=== PATIENT | male | born 1935 | race American Indian/Alaskan Native ===

== ENCOUNTER 2020-07-29 11:30 | Inpatient (IN) | payer MEDICARE ==
[2020-07-29] MEDS ORDERED: SODIUM CHLORIDE 0.9% 1000 ML 1,000 ML IV ONE (12:26)
--- NOTE | 2020-07-29 12:59 | Emergency Department Report ---
- General Chief complaint: Weakness Stated complaint: HYPOTENSION Time Seen by Provider: 07/29/20 12:10 Source: patient, EMS Mode of arrival: Stretcher Limitations: Physical Limitation - History of Present Illness Initial comments: 85-year-old male presents to ED with weakness and lethargy x3 weeks. Daughter (Jen Garcia [phone]) states patient has just been lying around the house, seems to be disoriented at times, not eating or drinking normally. Daughter states patient had an appointment with his PCP on last week who then schedule an appointment with cardiology today. Went to director treasurer's office for evaluation this morning and pt found to be hypotensive there. EMS reports BP 80/40. Patient has no complaints at this time. He does report that his p.o. intake has been somewhat decreased lately. States he lives with his daughter and her . He denies any fever, cough, vomiting, diarrhea, abdominal pain, chest pain, shortness of breath. Patient is alert and oriented. He is confused about the year, however is able to report that the month is July and that the president is Ryan Jonhston MD Complaint: generalized weakness -: week(s) (3) Location: generalized Consistency: constant Improves with: none Worsens with: none Associated Symptoms: loss of appetite. denies: chest pain, fever/chills, headaches, nausea/vomiting, myalgias, shortness of breath - Related Data Allergies Allergy/AdvReac Type Severity Reaction Status Date / Time No Known Allergies Allergy Unverified 07/29/20 14:27 ED Review of Systems ROS: Stated complaint: HYPOTENSION Other details as noted in HPI Comment: All other systems reviewed and negative Constitutional: weakness. denies: fever Respiratory: denies: cough, shortness of breath Cardiovascular: denies: chest pain Gastrointestinal: denies: abdominal pain, vomiting, diarrhea Musculoskeletal: denies: myalgia Neurological: denies: headache ED Past Medical Hx - Past Medical History Hx Hypertension: Yes Hx Heart Attack/AMI: Yes - Social History Smoking Status: Former Smoker ED Physical Exam - General Limitations: Physical Limitation General appearance: alert, in no apparent distress - Head Head exam: Present: atraumatic, normocephalic - Eye Eye exam: Present: normal appearance, EOMI - ENT ENT exam: Present: mucous membranes moist - Neck Neck exam: Present: normal inspection - Respiratory Respiratory exam: Present: normal lung sounds bilaterally. Absent: respiratory distress - Cardiovascular Cardiovascular Exam: Present: regular rate, normal rhythm - GI/Abdominal GI/Abdominal exam: Present: soft. Absent: distended, tenderness - Extremities Exam Extremities exam: Present: normal inspection. Absent: pedal edema, calf tenderness - Neurological Exam Neurological exam: Present: alert, oriented X3 - Psychiatric Psychiatric exam: Present: normal affect, normal mood - Skin Skin exam: Present: warm, dry, intact, normal color ED Course Vital Signs 07/29/20 07/29/20 07/29/20 11:52 12:00 12:14 Temperature 97.6 F Pulse Rate 65 68 Respiratory 18 16 Rate Blood Pressure 90/58 96/66 Blood Pressure [Left] O2 Sat by Pulse 96 97 Oximetry 07/29/20 07/29/20 07/29/20 12:15 12:30 12:49 Temperature Pulse Rate 68 72 64 Respiratory 14 20 17 Rate Blood Pressure Blood Pressure 96/66 86/61 110/67 [Left] O2 Sat by Pulse 96 98 96 Oximetry 07/29/20 07/29/20 07/29/20 13:16 13:45 14:15 Temperature Pulse Rate 60 60 60 Respiratory 19 16 15 Rate Blood Pressure Blood Pressure 114/72 138/85 142/84 [Left] O2 Sat by Pulse 99 95 96 Oximetry 07/29/20 17:29 Temperature Pulse Rate 60 Respiratory 12 Rate Blood Pressure Blood Pressure 158/75 [Left] O2 Sat by Pulse 95 Oximetry ED Medical Decision Making - Lab Data Result diagrams: 07/29/20 12:47 07/29/20 14:33 - EKG Data -: EKG Interpreted by Ms EKG shows normal: sinus rhythm, axis, intervals, QRS complexes Rate: normal - EKG Data Interpretation: no acute changes - Radiology Data Radiology results: report reviewed, image reviewed - Medical Decision Making 85-year-old male presents to ED with generalized weakness, decreased p.o. intake, intermittent altered mental status for the last 2 to 3 weeks. Patient arrives to ED hypotensive. Patient is not tachycardic, he is not febrile. WBCs are normal. Chemistry shows hypernatremia with sodium of 151, and some acute renal failure. Chest x-ray shows patchy bilateral airspace densities that is concerning for pneumonia. Patient will be made a COVID-19 PUI. He is not in any respiratory distress, O2 sats are normal. Blood cultures drawn, Rocephin and azithromycin given. Patient has received 1 L bolus IV fluids and is now normotensive. Lactic acid elevated at 3.4, however, will hold off on 30 cc/kg fluid bolus as it is indicated to keep COVID-19 patients as dry as possible. Since his chest x-ray is concerning for possible Covid pneumonia, and his blood pressure has responded appropriately to only 1 L of IV fluids, will hold any further hydration at this time. Patient will be admitted by hospitalist, Dr. Lowery, for further management. - Differential Diagnosis dehydration, COVID, UTI Critical care attestation.: If time is entered above; I have spent that time in minutes in the direct care of this critically ill patient, excluding procedure time. ED Disposition Clinical Impression: Pneumonia, Dehydration, Acute renal failure, Hypernatremia, Suspected 2019 novel coronavirus infection, SIRS (systemic inflammatory response syndrome) Hypotension Qualifiers: Hypotension type: other hypotension type Qualified Code(s): I95.89 - Other hypotension Disposition: OP ADMIT IP TO THIS HOSP Is pt being admited?: Yes Condition: Stable Time of Disposition: 14:28
[2020-07-29 13:23] LABS: Hematocrit 43.2 % (35.5-45.6); Mean Corpuscular HGB Conc 32 % (32-34); Mean Corpuscular Volume 91 fl (84-94); Platelet Count 240 K/mm3 (140-440); Red Blood Count 4.77 M/mm3 (3.65-5.03); Red Cell Distribution Width 13.9 % (13.2-15.2)
[2020-07-29 13:24] LABS: INR 1.2 (0.87-1.13)
[2020-07-29 13:25] LABS: Partial Thromboplastin Time 28.2 Sec. (24.2-36.6)
--- NOTE | 2020-07-29 13:27 | XRay Report ---
CHEST 1 VIEW INDICATION / CLINICAL INFORMATION: weakness. FINDINGS: SUPPORT DEVICES: None. HEART / MEDIASTINUM: No significant abnormality. LUNGS / PLEURA: Patchy bilateral airspace density suspicious for possible underlying pneumonia. No pl eural effusion. Signer Name: Kannan Merlos MD Signed: 07/29/2020 1:23 PM Workstation Name: [id number]
[2020-07-29 13:33] LABS: Alanine Aminotransferase 22 units/L (7-56); Albumin 3.5 g/dL (3.9-5); BUN/Creatinine Ratio 31; Blood Urea Nitrogen 40 mg/dL (9-20); Calcium 9.2 mg/dL (8.4-10.2); Hemolysis Index 51
[2020-07-29 13:36] LABS: Basophils % (Auto) 0.3 % (0.0-1.8); Eosinophils # (Auto) 0.2 K/mm3 (0.0-0.4); Eosinophils % (Auto) 2.8 % (0.0-4.3); Lymphocytes # (Auto) 1.1 K/mm3 (1.2-5.4); Monocytes # (Auto) 0.8 K/mm3 (0.0-0.8); Monocytes % (Auto) 13.1 % (0.0-7.3)
[2020-07-29 13:44] LABS: Bilirubin,Direct < 0.2 mg/dL (0-0.2)
[2020-07-29] MEDS ORDERED: AZITHROMYCIN 250 MG TAB PO ONE (14:22)
[2020-07-29] MEDS ORDERED: cefTRIAXone/NS 1 GM/50 ML 1 GM/50 ML BAG IV ONE (14:22)
--- NOTE | 2020-07-29 14:25 | History and Physical Report ---
History of Present Illness Chief complaint: I have been feeling weak and tired History of present illness: 85 YO Male with HTN, [place] presents to ED for evaluation. Pt states that he has been "feeling tired" over the past 2-3 weeks with persistent symptoms over the same timeframe. Patient provides partial history. Remaining history is provided by the patient's daughter who assist the patient with history recollection. Patient acknowledges decreased exercise tolerance, fatigue, malaise, body aches, decreased oral intake, as well as disorientation. Patient was seen and evaluated in her disk recoater office today and was found to be hypotensive with a systolic blood pressure in the 80s. EMS was notified and upon arrival the patient was found to be hypotensive with a blood pressure of 80/40. The patient was transported to [facility] for further care and evaluation of the aforementioned symptoms. The patient was seen and evaluated in the emergency department. All lab and imaging studies reviewed. Patient underwent chest x-ray which revealed pneumonia. Patient found to have systemic inflammatory response syndrome, as well as encephalopathy. Patient admitted to medical floor and initiated on pneumonia protocol as well as coronavirus protocol. Patient family denies reports of fever, chills, chest pain, pa lpitation, productive cough, skin rash, recent ill contacts, or known exposure to COVID-19. Patient is confused but has a positive gag reflex and is able to protect his airway without difficulty. No prior admission for review. No medication listed at time of admission for reconciliation. Advanced care planning conducted in the emergency department. Past History Past Medical History: acute [place], hypertension, other (See HPI) Social history: single, lives with family. denies: smoking, alcohol abuse, prescription drug abuse Family history: diabetes, hypertension Medications and Allergies Allergies Allergy/AdvReac Type Severity Reaction Status Date / Time No Known Allergies Allergy Unverified 07/29/20 14:27 Active Meds: Active Medications Ceftriaxone Sodium (Rocephin/Ns 1 Gm/50 Ml) 1 gm in 50 mls @ 100 mls/hr IV ONCE ONE; Protocol Stop: 07/29/20 14:51 Review of Systems ROS unobtainable: due to mental status Exam - Constitutional Vitals: Temp Pulse Resp BP Pulse Ox 97.6 F 60 15 142/84 96 07/29/20 11:52 07/29/20 14:15 07/29/20 14:15 07/29/20 14:15 07/29/20 14:15 General appearance: Present: mild distress - EENT Eyes: Present: PERRL ENT: clear oral mucosa, hearing decreased - Neck Neck: Present: supple, normal ROM - Respiratory Respiratory effort: labored, accessory muscle use Respiratory: bilateral: diminished, rhonchi - Cardiovascular Rhythm: regular Heart Sounds: Present: S1 & S2 - Extremities Extremities: pulses symmetrical, No edema Peripheral Pulses: within normal limits - Abdominal General gastrointestinal: Present: soft, non-tender, non-distended, normal bowel sounds Male genitourinary: Present: normal - Integumentary Integumentary: Present: clear, warm, dry - Musculoskeletal Musculoskeletal: generalized weakness - Psychiatric Psychiatric: no appropriate mood/affect, no intact judgment & insight, no memory intact - Neurologic Neurologic: CNII-XII intact, no focal deficits, moves all extremities, no gait normal HEART Score - HEART Score Troponin: Troponin T < 0.010 ng/mL (0.00-0.029) 07/29/20 12:47 Results - Labs CBC & Chem 7: 07/29/20 12:47 07/29/20 14:33 Labs: Abnormal lab results 07/29/20 07/29/20 07/29/20 Range/Units 12:47 12:47 12:47 [place] % (Auto) 13.1 H (0.0-7.3) % Lymph # (Auto) 1.1 L (1.2-5.4) K/mm3 PT 15.2 H (12.2-14.9) Sec. INR 1.20 H (0.87-1.13) Sodium 151 H (137-145) mmol/L Chloride 112.6 H (98-107) mmol/L BUN 40 H (9-20) mg/dL Glucose 104 H (75-100) mg/dL AST 44 H (5-40) units/L Albumin 3.5 L (3.9-5) g/dL Assessment and Plan - Patient Problems (1) Pneumonia Current Visit: Yes Status: Acute Plan to address problem: Pneumonia protocol: Chest x-ray, CBC, CMP, supplemental oxygen, pulse oximetry, nebulizer therapy, pulmonary toilet. (2) Systemic inflammatory response syndrome Current Visit: Yes Status: Acute Plan to address problem: CBC, CMP, IV antibiotic therapy, chest x-ray, urinalysis, supportive care, encourage free water intake, monitor urine output every shift. (3) Hypotension Current Visit: Yes Status: Acute Qualifiers: Hypotension type: other hypotension type Qualified Code(s): I95.89 - Other hypotension Plan to address problem: Suspected secondary to volume depletion, supportive care, encourage free water intake. (4) Suspected 2019 novel coronavirus infection Current Visit: Yes Status: Acute Plan to address problem: Coronavirus protocol: Contact precaution, isolation precautions, IV antibiotic therapy, IV steroid therapy, supportive care. Coronavirus PCR ordered and is pending at time of admission. (5) Metabolic encephalopathy Current Visit: Yes Status: Acute Plan to address problem: Supportive care, neuro check, seizure precaution, aspiration precaution, fall precautions. (6) DVT prophylaxis Current Visit: Yes Status: Acute Plan to address problem: SCD to bilateral lower extremities while in bed, prophylactic anticoagulation (7) Advance care planning Current Visit: Yes Status: Acute Plan to address problem: Disease education conducted, patient is full code, prognosis discussed, care plan discussed, patient daughter knowledges understanding and agreement with care plan, +30 minutes.
[2020-07-29] MEDS ORDERED: ONDANSETRON 4 MG/2 ML INJ IV PRN (14:26)
[2020-07-29] MEDS ORDERED: ACETAMINOPHEN 325 MG TAB PO PRN (14:26)
[2020-07-29] MEDS ORDERED: DEXTROSE 50% IN WATER (25GM) 50 ML SYRINGE IV PRN ×2 (15:10→15:11)
[2020-07-29 15:26] LABS: Bilirubin,Urine NEG (Negative); Blood,Urine NEG (Negative); Color,Urine Amber (Yellow); Mucus,Urine 3+ /HPF
[2020-07-29 15:57] LABS: C-Reactive Protein 2.3 mg/dL (0.00-1.30)
[2020-07-29] MEDS: methylPREDNISolone Sod Succinate 40 MG/1 ML INJ IV SCH (23:30)
[2020-07-29] MEDS: HEPARIN 5,000 UNIT/1 ML VIAL SUB-Q SCH (23:31)
[2020-07-29] MEDS: FAMOTIDINE 20 MG TAB PO SCH (23:32)
[2020-07-29] MEDS: ASCORBIC ACID 500 MG TAB PO SCH (23:32)
[2020-07-30] MEDS: methylPREDNISolone Sod Succinate 40 MG/1 ML INJ IV SCH ×3 (05:21→21:40)
[2020-07-30 06:23] LABS: Basophils % (Auto) 0.5 % (0.0-1.8); Eosinophils # (Auto) 0.2 K/mm3 (0.0-0.4); Eosinophils % (Auto) 3.1 % (0.0-4.3); Hematocrit 40.1 % (35.5-45.6); Hemoglobin 13.4 gm/dl (11.8-15.2); Lymphocytes # (Auto) 1.2 K/mm3 (1.2-5.4); Lymphocytes % (Auto) 18.9 % (13.4-35.0); Mean Corpuscular HGB Conc 33 % (32-34); Mean Corpuscular Volume 91 fl (84-94); Monocytes # (Auto) 0.8 K/mm3 (0.0-0.8); Monocytes % (Auto) 12.3 % (0.0-7.3); Platelet Count 197 K/mm3 (140-440); Red Blood Count 4.41 M/mm3 (3.65-5.03); Red Cell Distribution Width 13.5 % (13.2-15.2)
[2020-07-30 06:29] LABS: BUN/Creatinine Ratio 32; Blood Urea Nitrogen 29 mg/dL (9-20); Calcium 8.6 mg/dL (8.4-10.2); Hemolysis Index 17
[2020-07-30] MEDS ORDERED: SODIUM CHLORIDE 0.45% 1000 ML 1,000 ML IV SCH (09:00)
--- NOTE | 2020-07-30 09:12 | Nuclear Medicine Report ---
NUCLEAR MEDICINE PERFUSION SCAN INDICATION: possible PE. Shortness of breath CORRELATION: AP chest 07/29/2020 RADIOPHARMACEUTICAL: Perfusion: 5.5 mCi Tc-99m MAA given IV FINDINGS: Perfusion images show symmetric and uniform radiotracer distribution throughout bilateral lung zones with no evidence of unmatched segmental perfusion defects. Normal cardiac silhouette. Small photopeni c defect in the lingular region correlates with the pacemaker generator seen on chest x-ray. IMPRESSION: Low probability perfusion scan for pulmonary embolism. Signer Name: Tim Roper Jr, MD Signed: 07/30/2020 9:08 AM Workstation Name: [id number]
[2020-07-30] MEDS: ASCORBIC ACID 500 MG TAB PO SCH ×2 (11:26→21:40)
[2020-07-30] MEDS: HEPARIN 5,000 UNIT/1 ML VIAL SUB-Q SCH ×2 (11:26→21:42)
[2020-07-30] MEDS: ZINC SULFATE 220 MG CAP PO SCH (11:26)
[2020-07-30] MEDS: FAMOTIDINE 20 MG TAB PO SCH ×2 (11:26→21:40)
[2020-07-30] MEDS: CHOLECALCIFEROL (VIT D3) 1000 UNIT (25 mcg) TAB PO SCH (11:26)
[2020-07-30] MEDS: cefTRIAXone/NS 2 GM/100 ML 2 GM/100 ML BAG IV SCH (11:27)
--- NOTE | 2020-07-30 14:16 | Progress Note ---
Assessment and Plan 85-year-old man past medical history hypertension, CAD, [place] presented with hypotension, hypernatremia, CXR suggestive of PNA --B/L pneumonia: Patient presented with two weeks of symptoms, chest x-ray with diffuse bilateral infiltrates, admission O2 sats 94% on room air. Inflammatory markers elevated. No PE on perfusion scan. Currently on room air cont abx for now, wait for COVID test --Hypertension: Currently hypotensive, unclear etiology. hold BP meds for now --CAD, cont home meds, monitor LFT --Suspected 2019 novel coronavirus infection Coronavirus protocol: Contact precaution, isolation precautions, supportive care. Coronavirus PCR ordered and is pending at this time -- Metabolic encephalopathy also has underlying dementia Supportive care, neuro check, seizure precaution, aspiration precaution, fall precautions. -- DVT prophylaxis SCD to bilateral lower extremities while in bed, prophylactic anticoagulation per COVID protocol -- patient is full code, discussed with patient daughter Daily course: 07/30: Pending COVID-19 test, follow inflammatory markers, continue IV antibiotic s. Start on half-normal saline for hypernatremia, follow BMP daily. Subjective Date of service: 07/30/20 Interval history: Patient seen and examined Appears pleasantly confused On bed w/o O2 -states he is ok w/o O2 denies ant chest pain or SOB Objective - Exam Narrative Exam: limited physical exam due to COVID-19 pandemic to minimize transmission of the disease. Vital reviewed and stable. GENERAL: well-developed elderly AAM lying on bed appeared to be in no discomfort. HEENT: Normocephalic. Atraumatic. NECK: Supple. CHEST/LUNGS: breathing nonlabored. HEART/CARDIOVASCULAR: Heart rate stable on telemetry ABDOMEN: Visibly not distended SKIN: There is no rash NEURO: No focal motor deficit. Follows command. MUSCULOSKELETAL: No joint effusion EXTRIMITY: No swelling, no cyanosis or clubbing. PSYCH: Cooperative. - Constitutional Vitals: Vital Signs - 12hr 07/30/20 07/30/20 07/30/20 03:37 03:42 05:41 Temperature 98.9 F Pulse Rate 71 Respiratory 18 Rate Blood Pressure 181/86 181/86 137/84 O2 Sat by Pulse 94 Oximetry 07/30/20 11:07 Temperature 99.0 F Pulse Rate 66 Respiratory 18 Rate Blood Pressure 132/83 O2 Sat by Pulse 98 Oximetry - Labs CBC & Chem 7: 08/03/20 04:44 08/03/20 04:44 Labs: Abnormal lab results 07/29/20 07/29/20 07/29/20 Range/Units 12:47 14:33 14:33 [place] % (Auto) (0.0-7.3) % D-Dimer > 52861 H (0-234) ng/mlDDU Sodium (137-145) mmol/L Chloride (98-107) mmol/L BUN (9-20) mg/dL Glucose (75-100) mg/dL Lactic Acid 3.40 H* (0.7-2.0) mmol/L Ferritin (30.0-300.0) ng/mL Lactate Dehydrogenase 345 H (91-180) units/L C-Reactive Protein 2.30 H (0.00-1.30) mg/dL 07/29/20 07/30/20 07/30/20 Range/Units 14:33 05:56 05:56 [place] % (Auto) 12.3 H (0.0-7.3) % D-Dimer (0-234) ng/mlDDU Sodium 150 H (137-145) mmol/L Chloride 116.3 H (98-107) mmol/L BUN 29 H (9-20) mg/dL Glucose 104 H (75-100) mg/dL Lactic Acid (0.7-2.0) mmol/L Ferritin 325.9 H (30.0-300.0) ng/mL Lactate Dehydrogenase (91-180) units/L C-Reactive Protein (0.00-1.30) mg/dL HEART Score - HEART Score Troponin: Troponin T < 0.010 ng/mL (0.00-0.029) 07/29/20 12:47
[2020-07-30] MEDS: AZITHROMYCIN/NS 500 MG/250 ML 500 MG/250 ML BAG IV SCH (15:00)
[2020-07-31] MEDS: methylPREDNISolone Sod Succinate 40 MG/1 ML INJ IV SCH (05:21)
[2020-07-31 06:22] LABS: BUN/Creatinine Ratio 32; Blood Urea Nitrogen 29 mg/dL (9-20); Calcium 8.6 mg/dL (8.4-10.2); Hemolysis Index 10
[2020-07-31] MEDS: CHOLECALCIFEROL (VIT D3) 1000 UNIT (25 mcg) TAB PO SCH (11:56)
[2020-07-31] MEDS: ASCORBIC ACID 500 MG TAB PO SCH ×2 (11:56→22:58)
[2020-07-31] MEDS: ZINC SULFATE 220 MG CAP PO SCH (11:56)
[2020-07-31] MEDS: FAMOTIDINE 20 MG TAB PO SCH ×2 (11:56→22:57)
[2020-07-31] MEDS: HEPARIN 5,000 UNIT/1 ML VIAL SUB-Q SCH (11:58)
[2020-07-31] MEDS: AZITHROMYCIN/NS 500 MG/250 ML 500 MG/250 ML BAG IV SCH (12:00)
[2020-07-31] MEDS: cefTRIAXone/NS 2 GM/100 ML 2 GM/100 ML BAG IV SCH (14:19)
[2020-07-31] MEDS: D5W/0.2% NACL 1,000 ML IV SCH (14:23)
--- NOTE | 2020-07-31 15:03 | Progress Note ---
Assessment and Plan 85-year-old man past medical history hypertension, CAD, [place] presented with hypotension, hypernatremia, CXR suggestive of PNA --B/L COVID 19 pneumonia: Patient presented with two weeks of symptoms, chest x-ray with diffuse bilateral infiltrates, admission O2 sats 94% on room air. Inflammatory markers elevated. Normal procalcitonin No PE on perfusion scan. Currently on room air Patient does not meet criteria for remdesivir or dexamethasone Will stop antibiotic as procalcitonin is normal --Hypertension: Currently hypotensive, unclear etiology. hold BP meds for now --CAD, cont home meds, monitor LFT --Hypernatremia, cont hypotonic fluid, monitor BMP -- Metabolic encephalopathy also has underlying dementia Supportive care, neuro check, seizure precaution, aspiration precaution, fall precautions. -- DVT prophylaxis SCD to bilateral lower extremities while in bed, prophylactic anticoagulation per COVID protocol -- patient is full code, discussed with patient daughter Daily course: 07/30: Pending COVID-19 test, follow inflammatory markers, continue IV antibiotics. Start on half-normal saline for hypernatremia, follow BMP daily 07/31: Patient is positive for Covid, continue to monitor BMP and inflammatory markers. Patient is not hypoxic -will not start on dexamethasone and remdesivir for now. Discussed with patient daughter by phone today. Subjective Date of service: 07/31/20 Interval history: Patient seen and examined Appears pleasantly confused On bed w/o O2 -states he is ok w/o O2 denies ant chest pain or SOB Na level still elevated Positive for COVID Objective - Exam Narrative Exam: limited physical exam due to COVID-19 pandemic to minimize transmission of the disease. Vital reviewed and stable. GENERAL: well-developed elderly AAM lying on bed appeared to be in no discomfort. HEENT: Normocephalic. Atraumatic. NECK: Supple. CHEST/LUNGS: breathing nonlabored. HEART/CARDIOVASCULAR: Heart rate stable on telemetry ABDOMEN: Visibly not distended SKIN: There is no rash NEURO: No focal motor deficit. Follows command. MUSCULOSKELETAL: No joint effusion EXTRIMITY: No swelling, no cyanosis or clubbing. PSYCH: Cooperative. - Constitutional Vitals: Vital Signs - 12hr 07/31/20 07/31/20 07/31/20 06:06 10:00 11:35 Temperature 97.7 F 98.6 F Pulse Rate 77 60 Respiratory 20 19 Rate Blood Pressure 125/74 150/83 O2 Sat by Pulse 96 94 96 Oximetry - Labs CBC & Chem 7: 08/03/20 04:44 08/03/20 04:44 Labs: Abnormal lab results 07/30/20 07/31/20 07/31/20 Range/Units Unknown 04:48 06:23 Sodium 151 H (137-145) mmol/L Chloride 115.2 H (98-107) mmol/L BUN 29 H (9-20) mg/dL Glucose 115 H (75-100) mg/dL POC Glucose 106 H (70-105) mg/dL Coronavirus (PCR) Positive A (Negative) 07/31/20 Range/Units 11:35 Sodium (137-145) mmol/L Chloride (98-107) mmol/L BUN (9-20) mg/dL Glucose (75-100) mg/dL POC Glucose 112 H (70-105) mg/dL Coronavirus (PCR) (Negative) HEART Score - HEART Score Troponin: Troponin T < 0.010 ng/mL (0.00-0.029) 07/29/20 12:47
[2020-07-31] MEDS: APIXABAN 5 MG TAB PO SCH (22:57)
[2020-08-01 06:25] LABS: BUN/Creatinine Ratio 30; Blood Urea Nitrogen 27 mg/dL (9-20); Calcium 8.4 mg/dL (8.4-10.2); Hemolysis Index 13
[2020-08-01] MEDS: APIXABAN 5 MG TAB PO SCH ×2 (10:00→22:06)
[2020-08-01] MEDS ORDERED: DEXAMETHASONE 4 MG TAB PO SCH (10:00)
[2020-08-01] MEDS: ZINC SULFATE 220 MG CAP PO SCH (10:00)
[2020-08-01] MEDS: ASCORBIC ACID 500 MG TAB PO SCH ×2 (10:00→22:06)
[2020-08-01] MEDS: CHOLECALCIFEROL (VIT D3) 1000 UNIT (25 mcg) TAB PO SCH (10:00)
[2020-08-01] MEDS: cefTRIAXone/NS 2 GM/100 ML 2 GM/100 ML BAG IV SCH (10:02)
[2020-08-01] MEDS: FAMOTIDINE 20 MG TAB PO SCH ×2 (10:02→22:06)
--- NOTE | 2020-08-01 11:36 | Consultation ---
History of Present Illness - Reason for Consult Consult date: 08/01/20 - History of Present Illness 85-year-old man past medical history hypertension, CAD presented to the hospital complaining of fatigue for the past 2 to 3 weeks. He notes it has been progressive since onset. He complains of associated decreased exercise tolerance, fatigue, malaise. 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 Imaging in the emergency room noted pneumonia. He does not know of any Covid exposures. Afebrile since admission with a normal white count. Covid positive. Normal renal function, normal procalcitonin. Mildly elevated liver enzymes. Elevated inflammatory markers. Blood cultures pending. Currently on ceftriaxone and azithromycin. Currently on room air. Imaging personally reviewed: Chest x-ray: Patchy bilateral airspace disease Perfusion scan low probability for pulmonary embolism. Review of systems: Deferred due to PPE conservation strategy. Past History Past Medical History: acute [place], hypertension, other (See HPI) Social history: single, lives with family. denies: smoking, alcohol abuse, prescription drug abuse Family history: diabetes, hypertension Medications and Allergies Allergies Allergy/AdvReac Type Severity Reaction Status Date / Time No Known Allergies Allergy Unverified 07/29/20 14:27 Active Meds: Active Medications Acetaminophen (Acetaminophen 325 Mg Tab) 650 mg PO Q4H PRN PRN Reason: Pain MILD(1-3)/Fever >100.5/HI Apixaban (Apixaban 5 Mg Tab) 5 mg PO Q12HR [facility]; Protocol Last Admin: 08/01/20 10:00 Dose: 5 mg Documented by: Ascorbic Acid (Ascorbic Acid 500 Mg Tab) 500 mg PO BID [facility] Last Admin: 08/01/20 10:00 Dose: 500 mg Documented by: Cholecalciferol (Cholecalciferol (Vit D3) 1000 Unit (25 Mcg) Tab) 1,000 unit PO QDAY [facility] Last Admin: 08/01/20 10:00 Dose: 1,000 unit Documented by: Dextrose (Dextrose 50% In Water (25gm) 50 Ml Syringe) 50 ml IV Q30MIN PRN; Protocol PRN Reason: Hypoglycemia Famotidine (Famotidine 20 Mg Tab) 20 mg PO BID [facility] Last Admin: 08/01/20 10:02 Dose: 20 mg Documented by: Ceftriaxone Sodium (Rocephin/Ns 2 Gm/100 Ml) 2 gm in 100 mls @ 200 mls/hr IV Q24H [facility]; Protocol Last Admin: 08/01/20 10:02 Dose: 200 mls/hr Documented by: Azithromycin (Zithromax/Ns) 500 mg in 250 mls @ 250 mls/hr IV Q24H [facility]; Protocol Stop: 08/02/20 10:59 Last Admin: 07/31/20 12:00 Dose: 250 mls/hr Documented by: Dextrose/Sodium Chloride (D5ns 0.2%) 1,000 mls @ 42 mls/hr IV DIRECT [facility] Last Admin: 07/31/20 14:23 Dose: 42 mls/hr Documented by: Ondansetron HCl (Ondansetron 4 Mg/2 Ml Inj) 4 mg IV Q8H PRN PRN Reason: Nausea And Vomiting Last Admin: 07/30/20 13:35 Dose: 4 mg Documented by: Sodium Chloride (Sodium Chloride 0.9% 10 Ml Flush Syringe) 10 ml IV BID [facility] Last Admin: 08/01/20 10:04 Dose: 10 ml Documented by: Sodium Chloride (Sodium Chloride 0.9% 10 Ml Flush Syringe) 10 ml IV PRN PRN PRN Reason: LINE FLUSH Zinc Sulfate (Zinc Sulfate 220 Mg Cap) 220 mg PO QDAY [facility] Last Admin: 08/01/20 10:00 Dose: 220 mg Documented by: Physical Examination - Physical Exam Narrative exam: Physical exam deferred due to PPE conservation strategy. Please refer to primary team's note. - Constitutional Vitals: Vital Signs Temp Pulse Resp BP Pulse Ox 98.3 F 60 18 123/69 94 08/01/20 05:01 08/01/20 05:01 08/01/20 05:01 08/01/20 05:01 08/01/20 08:49 Temperature -Last 24 Hours Temperature 98.3 F Temperature 97.8 F Temperature 98.2 F Temperature 98.6 F Results - Labs CBC & Chem 7: 07/30/20 05:56 08/01/20 05:36 Labs: Abnormal lab results 07/31/20 08/01/20 Range/Units 11:35 05:36 Sodium 151 H (137-145) mmol/L Chloride 115.8 H (98-107) mmol/L BUN 27 H (9-20) mg/dL POC Glucose 112 H (70-105) mg/dL Assessment and Plan Cultures: Blood culture pending COVID-19 positive A/P: 85-year-old man past medical history hypertension, CAD, [place] presented with hypotension, found to be Covid positive. #COVID-19 pneumonia: Patient presented with two weeks of symptoms, chest x-ray with diffuse bilateral infiltrates, admission O2 sats 94% on room air. Inflammatory markers elevated. Normal procalcitonin. No PE on perfusion scan. Currently on room air #Hypertension: Currently hypotensive, unclear etiology. #CAD Recs: -At this point as he is on room air, no role for dexamethasone or remdesivir. If he becomes hypoxic and requiring supplemental oxygen would start both. -Stop antibiotics due to normal procalcitonin and white count. -Obtain q48-72h inflammatory markers - ferritin, Ddimer, CRP, LDH -Anticoagulation per hospital protocol -Proning as able -Ordered bilateral Dopplers due to very high D-dimer -Noted negative perfusion scan but given hypotension and very high D-dimer may need to consider CT pulmonary embolism. Thank you for the consult, we will continue to follow. Thi Barrientos MD [facility] ([facility] O: [phone] F: [phone]
[2020-08-01] MEDS: AZITHROMYCIN/NS 500 MG/250 ML 500 MG/250 ML BAG IV SCH (12:07)
--- NOTE | 2020-08-01 14:18 | Progress Note ---
Assessment and Plan 85-year-old man past medical history hypertension, CAD, [place] presented with hypotension, hypernatremia, CXR suggestive of PNA. Positive for COVID19 --B/L COVID 19 pneumonia: Patient presented with two weeks of symptoms, chest x-ray with diffuse bilateral infiltrates, admission O2 sats 94% on room air. Inflammatory markers elevated. Normal procalcitonin No PE on perfusion scan. Currently on room air Patient does not meet criteria for remdesivir or dexamethasone off antibiotic as procalcitonin is normal --Hypertension: Currently hypotensive, unclear etiology. hold BP meds for now --CAD, cont home meds, monitor LFT --Hypernatremia, cont hypotonic fluid, monitor BMP -- Metabolic encephalopathy also has underlying dementia Supportive care, neuro check, seizure precaution, aspiration precaution, fall precautions. -- DVT prophylaxis SCD to bilateral lower extremities while in bed, prophylactic anticoagulation per COVID protocol -- patient is full code, discussed with patient daughter Daily course: 07/30: Pending COVID-19 test, follow inflammatory markers, continue IV antibiotics. Start on half-normal saline for hypernatremia, follow BMP daily 07/31: Patient is positive for Covid, continue to monitor BMP and inflammatory markers. Patient is not hypoxic -will not start on dexamethasone and remdesivir for now. Discussed with patient daughter by phone today 08/01: Na level still 151, will increase hypotonic fluid level, monitor BMP. PT eval Subjective Date of service: 08/01/20 Interval history: Patient seen and examined Appears pleasantly confused On bed w/o O2 -states he is ok w/o O2 denies ant chest pain or SOB Na level still elevated Positive for COVID Objective - Exam Narrative Exam: limited physical exam due to COVID-19 pandemic to minimize transmission of the disease. Vital reviewed and stable. GENERAL: well-developed elderly AAM lying on bed appeared to be in no discomfort. HEENT: Normocephalic. Atraumatic. NECK: Supple. CHEST/LUNGS: breathing nonlabored. HEART/CARDIOVASCULAR: Heart rate stable on telemetry ABDOMEN: Visibly not distended SKIN: There is no rash NEURO: No focal motor deficit. Follows command. MUSCULOSKELETAL: No joint effusion EXTRIMITY: No swelling, no cyanosis or clubbing. PSYCH: Cooperative. - Constitutional Vitals: Vital Signs - 12hr 08/01/20 08/01/20 08/01/20 05:01 08:49 11:25 Temperature 98.3 F 98.2 F Pulse Rate 60 58 L Respiratory 18 19 Rate Blood Pressure 123/69 153/88 O2 Sat by Pulse 94 94 96 Oximetry - Labs CBC & Chem 7: 08/03/20 04:44 08/03/20 04:44 Labs: Abnormal lab results 08/01/20 Range/Units 05:36 Sodium 151 H (137-145) mmol/L Chloride 115.8 H (98-107) mmol/L BUN 27 H (9-20) mg/dL HEART Score - HEART Score Troponin: Troponin T < 0.010 ng/mL (0.00-0.029) 07/29/20 12:47
[2020-08-01] MEDS: D5W/0.2% NACL 1,000 ML IV SCH (20:38)
--- NOTE | 2020-08-02 08:24 | Progress Note ---
Assessment and Plan Cultures: Blood culture pending COVID-19 positive A/P: 85-year-old man past medical history hypertension, CAD, [place] presented with hypotension, found to be Covid positive. #COVID-19 pneumonia: Patient presented with two weeks of symptoms, chest x-ray with diffuse bilateral infiltrates, admission O2 sats 94% on room air. Inflam matory markers elevated. Normal procalcitonin. No PE on perfusion scan. Currently on room air. VQ scan low probability for PE. #Hypertension: Currently hypotensive, unclear etiology. #CAD Recs: -No indication for dexamethasone or remdesivir, patient is on room air. If he becomes hypoxic and requiring supplemental oxygen would start both. -Obtain q48-72h inflammatory markers - ferritin, Ddimer, CRP, LDH -reordered today -Anticoagulation per hospital protocol -Proning as able -Follow-up bilateral Dopplers to rule out DVT due to very high D-dimer Elodia Mcgee MD [facility] ([facility]) Office [phone] Subjective Date of service: 08/02/20 Principal diagnosis: COVID-19 Interval history: Patient remains on room air, no fever. Objective - Exam Narrative Exam: Physical exam deferred to minimize COVID-19 transmission during pandemic. ER and internal medicine physical examination notes reviewed. - Constitutional Vitals: Vital Signs Temp Pulse Resp BP Pulse Ox 98.1 F 60 20 140/83 97 08/02/20 04:08 08/02/20 04:08 08/02/20 04:08 08/02/20 04:08 08/02/20 04:08 Temperature -Last 24 Hours Temperature 98.1 F Temperature 98.9 F Temperature 98.2 F Temperature 98.2 F - Labs CBC & Chem 7: 07/30/20 05:56 08/01/20 05:36
[2020-08-02] MEDS: CHOLECALCIFEROL (VIT D3) 1000 UNIT (25 mcg) TAB PO SCH (09:43)
[2020-08-02] MEDS: ASCORBIC ACID 500 MG TAB PO SCH ×2 (09:43→21:26)
[2020-08-02] MEDS: APIXABAN 5 MG TAB PO SCH ×2 (09:44→21:26)
[2020-08-02] MEDS: ZINC SULFATE 220 MG CAP PO SCH (09:44)
[2020-08-02] MEDS: FAMOTIDINE 20 MG TAB PO SCH ×2 (09:44→21:29)
[2020-08-02] MEDS ORDERED: APIXABAN 5 MG TAB PO NR (15:20)
--- NOTE | 2020-08-02 15:23 | Progress Note ---
Assessment and Plan 85-year-old man past medical history hypertension, CAD, [place] presented with hypotension, hypernatremia, CXR suggestive of PNA. Positive for COVID19 and acute DVT. --B/L COVID 19 pneumonia: Patient presented with two weeks of symptoms, chest x-ray with diffuse bilateral infiltrates, admission O2 sats 94% on room air. Inflammatory markers elevated. Normal procalcitonin No PE on perfusion scan. Currently on room air Patient does not meet criteria for remdesivir or dexamethasone off antibiotic as procalcitonin is normal --Hypertension: Currently hypotensive, unclear etiology. hold BP meds for now --CAD, cont home meds, monitor LFT --Hypernatremia, cont hypotonic fluid, monitor BMP -- Metabolic encephalopathy due to hypernatremia, COVID infection, also has underlying dementia Supportive care, neuro check, seizure precaution, aspiration precaution, fall precautions. -- DVT prophylaxis, on eliquis -- Patient is full code, discussed with patient daughter. Daily course: 07/30: Pending COVID-19 test, follow inflammatory markers, continue IV antibiotics. Start on half-normal saline for hypernatremia, follow BMP daily 07/31: Patient is positive for Covid, continue to monitor BMP and inflammatory markers. Patient is not hypoxic -will not start on dexamethasone and remdesivir for now. Discussed with patient daughter by phone today 08/01: Na level still 151, will increase hypotonic fluid level, monitor BMP. PT eval 08/02: Venous doppler positive for occlusive DVT in the left posterior tibial vein. will adjust eliquis dose to 10mg BID. Cont to monitor Na level. if clinically stable and Na improves then possible d/c tomorrow am. Subjective Date of service: 08/02/20 Principal diagnosis: COVID-19 Interval history: Patient seen and examined Appears pleasantly confused On bed w/o O2 -states he is ok w/o O2 denies ant chest pain or SOB LE doppler positive for acute DVT Objective - Exam Narrative Exam: limited physical exam due to COVID-19 pandemic to minimize transmission of the disease. Vital reviewed and stable. GENERAL: well-developed elderly AAM lying on bed appeared to be in no d iscomfort. HEENT: Normocephalic. Atraumatic. NECK: Supple. CHEST/LUNGS: breathing nonlabored. HEART/CARDIOVASCULAR: Heart rate stable on telemetry ABDOMEN: Visibly not distended SKIN: There is no rash NEURO: No focal motor deficit. Follows command. MUSCULOSKELETAL: No joint effusion EXTRIMITY: No swelling, no cyanosis or clubbing. PSYCH: Cooperative. - Constitutional Vitals: Vital Signs - 12hr 08/02/20 08/02/20 08/02/20 04:08 08:00 11:56 Temperature 98.1 F 98.2 F Pulse Rate 60 71 Respiratory 20 18 19 Rate Blood Pressure 140/83 112/67 O2 Sat by Pulse 97 96 Oximetry - Labs CBC & Chem 7: 08/03/20 04:44 08/03/20 04:44 HEART Score - HEART Score Troponin: Troponin T < 0.010 ng/mL (0.00-0.029) 07/29/20 12:47
--- NOTE | 2020-08-02 15:42 | Vascular Lab Report ---
DUPLEX DOPPLER LOWER EXTREMITY VEINS, BILATERAL INDICATION / CLINICAL INFORMATION: COVID, high d-dimer, hypotensive. TECHNIQUE: Duplex doppler imaging was performed through the veins of both lower extremities using venous socorro clyde and other maneuvers. COMPARISON: None available. FINDINGS: RIGHT COMMON FEMORAL VEIN: Negative. RIGHT FEMORAL VEIN: Negative. RIGHT POPLITEAL VEIN: Negative. RIGHT CALF VEINS: Negative. LEFT COMMON FEMORAL VEIN: Negative. LEFT FEMORAL VEIN: Negative. LEFT POPLITEAL VEIN: Negative. LEFT CALF VEINS: Occlusive DVT in the left posterior tibial vein. ADDITIONAL FINDINGS: None. IMPRESSION: 1. Occlusive DVT in the left posterior tibial vein. Railway Switch Operator provided a preliminary report to the patient's nurse at 1442 hours. Signer Name: Magdiel Galindo MD Signed: 08/02/2020 3:37 PM Workstation Name: [id number]
[2020-08-02 17:29] LABS: BUN/Creatinine Ratio 25; Blood Urea Nitrogen 20 mg/dL (9-20); Calcium 8.3 mg/dL (8.4-10.2); Hemolysis Index 15
[2020-08-02 17:32] LABS: C-Reactive Protein 0.6 mg/dL (0.00-1.30)
[2020-08-02] MEDS: D5W/0.2% NACL 1,000 ML IV SCH (21:25)
[2020-08-03 05:31] LABS: Basophils % (Auto) 0.3 % (0.0-1.8); Eosinophils # (Auto) 0.2 K/mm3 (0.0-0.4); Eosinophils % (Auto) 3.6 % (0.0-4.3); Hematocrit 36.6 % (35.5-45.6); Lymphocytes # (Auto) 1.5 K/mm3 (1.2-5.4); Mean Corpuscular HGB Conc 33 % (32-34); Mean Corpuscular Volume 90 fl (84-94); Monocytes # (Auto) 0.8 K/mm3 (0.0-0.8); Monocytes % (Auto) 13.4 % (0.0-7.3); Platelet Count 183 K/mm3 (140-440); Red Blood Count 4.08 M/mm3 (3.65-5.03); Red Cell Distribution Width 13.8 % (13.2-15.2)
[2020-08-03 05:48] LABS: Alanine Aminotransferase 73 units/L (7-56); Albumin 2.8 g/dL (3.9-5); BUN/Creatinine Ratio 29; Blood Urea Nitrogen 20 mg/dL (9-20); Hemolysis Index 10
--- NOTE | 2020-08-03 08:20 | Progress Note ---
Assessment and Plan Cultures: Blood culture no growth today COVID-19 positive A/P: 85-year-old man past medical history hypertension, CAD, [place] presented with hypotension, found to be Covid positive. #COVID-19 pneumonia: Patient presented with two weeks of symptoms, chest x-ray with diffuse bilateral infiltrates, admission O2 sats 94% on room air. Inflammatory markers elevated. Normal procalcitonin. Currently on room air. VQ scan low probability for PE. Ferritin improving. #CAD #Transaminitis: Worsening. #DVT on the left leg now on Eliquis full dose Recs: -Monitor LFTs, if continues to worsen obtain right upper quadrant ultrasound -No indication for dexamethasone or remdesivir, patient is on room air. If he becomes hypoxic and requiring supplemental oxygen would start both. -Obtain q48-72h inflammatory markers - ferritin, Ddimer, CRP, LDH -reordered today -Anticoagulation per hospital protocol/on Eliquis for DVT -Proning as able -Check 6 minutes walking test if possible If no hypoxia okay to discharge from ID standpoint Elodia Mcgee MD [facility] ([facility]) Office [phone] Subjective Date of service: 08/03/20 Principal diagnosis: COVID-19 Interval history: Remains on room air, O2 sat over 95%. No fever, no desaturations. Objective - Constitutional Vitals: Vital Signs Temp Pulse Resp BP Pulse Ox 98.2 F 60 16 145/80 98 08/03/20 04:37 08/03/20 04:37 08/03/20 07:59 08/03/20 04:37 08/03/20 04:37 Temperature -Last 24 Hours Temperature 98.2 F Temperature 99.1 F Temperature 97.9 F Temperature 98.2 F - Labs CBC & Chem 7: 08/03/20 04:44 08/03/20 04:44 Labs: Abnormal lab results 08/02/20 08/02/20 08/02/20 Range/Units 16:27 16:27 16:27 [place] % (Auto) (0.0-7.3) % D-Dimer > 08557 H (0-234) ng/mlDDU Potassium 3.4 L (3.6-5.0) mmol/L Chloride 109.7 H (98-107) mmol/L Creatinine (0.8-1.3) mg/dL POC Glucose (70-105) mg/dL Calcium 8.3 L (8.4-10.2) mg/dL AST (5-40) units/L ALT (7-56) units/L Lactate Dehydrogenase 329 H (91-180) units/L Total Protein (6.3-8.2) g/dL Albumin (3.9-5) g/dL 08/02/20 08/03/20 08/03/20 Range/Units 22:11 04:44 04:44 [place] % (Auto) 13.4 H (0.0-7.3) % D-Dimer (0-234) ng/mlDDU Potassium (3.6-5.0) mmol/L Chloride 108.5 H (98-107) mmol/L Creatinine 0.7 L (0.8-1.3) mg/dL POC Glucose 113 H (70-105) mg/dL Calcium 8.0 L (8.4-10.2) mg/dL AST 74 H (5-40) units/L ALT 73 H (7-56) units/L Lactate Dehydrogenase (91-180) units/L Total Protein 5.6 L D (6.3-8.2) g/dL Albumin 2.8 L (3.9-5) g/dL
[2020-08-03] MEDS: APIXABAN 5 MG TAB PO SCH (09:16)
[2020-08-03] MEDS: FAMOTIDINE 20 MG TAB PO SCH (09:16)
[2020-08-03] MEDS: CHOLECALCIFEROL (VIT D3) 1000 UNIT (25 mcg) TAB PO SCH (09:16)
[2020-08-03] MEDS: ZINC SULFATE 220 MG CAP PO SCH (09:17)
[2020-08-03] MEDS: ASCORBIC ACID 500 MG TAB PO SCH (09:22)
--- NOTE | 2020-08-03 12:41 | Discharge Summary ---
Providers - Providers Date of Admission: 07/29/20 14:26 Date of discharge: 08/03/20 Attending physician: RICH HENDRICKS 07/30/20 16:27 Consult to Physician [CONS] Routine Comment: Consulting Provider: STEFF GLASS Physician Instructions: Reason For Exam: covid 07/31/20 12:30 Physical Therapy Evaluation and Treat [CONS] Routine Comment: Reason For Exam: Debility Primary care physician: AUTO HAULER Hospitalization Condition: Stable Pertinent studies: CXR Pulmonary VQ scan LE venous doppler Hospital course: 85-year-old man past medical history hypertension, CAD, [place] presented with hypotension, hypernatremia, CXR suggestive of PNA. Positive for COVID19 and acute DVT. Daily course: 07/30: Pending COVID-19 test, follow inflammatory markers, continue IV antibiotics. Start on half-normal saline for hypernatremia, follow BMP daily 07/31: Patient is positive for Covid, continue to monitor BMP and inflammatory markers. Patient is not hypoxic -will not start on dexamethasone and remdesivir for now. Discussed with patient daughter by phone today 08/01: Na level still 151, will increase hypotonic fluid level, monitor BMP. PT eval 08/02: Venous doppler positive for occlusive DVT in the left posterior tibial vein. will adjust eliquis dose to 10mg BID. Cont to monitor Na level. if clinically stable and Na improves then possible d/c tomorrow am. 08/03: Clinically stable, d/c home with HH Discharge diagnosis: --B/L COVID 19 pneumonia: Patient presented with two weeks of symptoms, chest x-ray with diffuse bilateral infiltrates, admission O2 sats 94% on room air. Inflammatory markers elevated. Normal procalcitonin No PE on perfusion scan. Currently on room air Patient does not meet criteria for remdesivir or dexamethasone off antibiotic as procalcitonin is normal --Hypertension: Currently hypotensive, unclear etiology. hold BP meds for now --CAD, cont home meds, monitor LFT --Hypernatremia, cont hypotonic fluid, monitor BMP -- Metabolic encephalopathy due to hypernatremia, COVID infection, also has underlying dementia Supportive care, neuro check, seizure precaution, aspiration precaution, fall precautions. -- DVT prophylaxis, on eliquis -- Patient is full code, discussed with patient daughter. Disposition: [id number]/[place]-06 HOME UNDER HOME HL[facility] Time spent for discharge: 34 minutes Core Measure Documentation - Palliative Care Palliative Care/ Comfort Measures: Not Applicable - Core Measures Any of the following diagnoses?: none Exam - Physical Exam Narrative exam: limited physical exam due to COVID-19 pandemic to minimize transmission of the disease. Vital reviewed and stable. GENERAL: well-developed elderly AAM lying on bed appeared to be in no discomfort. HEENT: Normocephalic. Atraumatic. NECK: Supple. CHEST/LUNGS: breathing nonlabored. HEART/CARDIOVASCULAR: Heart rate stable on telemetry ABDOMEN: Visibly not distended SKIN: There is no rash NEURO: No focal motor deficit. Follows command. MUSCULOSKELETAL: No joint effusion EXTRIMITY: No swelling, no cyanosis or clubbing. PSYCH: Cooperative. - Constitutional Vitals: Temp Pulse Resp BP Pulse Ox 98.2 F 60 16 145/80 98 08/03/20 04:37 08/03/20 04:37 08/03/20 07:59 08/03/20 04:37 08/03/20 04:37 Plan Activity: fall precautions Weight Bearing Status: Non-Weight Bearing Diet: low fat, low salt Special Instructions: home health RN Follow up with: PRIMARY CARE, [Primary Care Provider] - 3-5 Days Prescriptions: Apixaban [Eliquis] 5 mg PO Q12HR #60 tablet Ascorbic Acid [Vitamin C] 500 mg PO BID #14 tablet Cholecalciferol Vit D3 [Vitamin D3 1,000 UNIT TAB] 1,000 unit PO QDAY #7 tablet Zinc Sulfate 220 mg PO QDAY #14 capsule
[2020-08-03 17:17] VITALS: BP 124/73
[2020-08-09] MEDS ORDERED: APIXABAN 5 MG TAB PO SCH (10:00)
== END 2020-08-03 18:25 | disposition home health service (06) | DRG 177 ==
LOC: ED 11:30 → 3A 14:26
PROVIDERS: ADMIT Internal Medicine; ATTEND Internal Medicine
DX: U07.1 COVID-19 (principal); G93.41 Metabolic encephalopathy; J12.82 Pneumonia due to coronavirus disease 2019; R65.10 Systemic inflammatory response syndrome (SIRS) of non-infectious origin without acute organ dysfunction; E87.0 Hyperosmolality and hypernatremia; E86.0 Dehydration; I25.10 Atherosclerotic heart disease of native coronary artery without angina pectoris; I10 Essential (primary) hypertension; I95.89 Other hypotension; I25.2 Old myocardial infarction; Z87.891 Personal history of nicotine dependence; Z83.3 Family history of diabetes mellitus; Z82.49 Family history of ischemic heart disease and other diseases of the circulatory system
CPT/HCPCS: 36415; 71045; 78580; 80048; 80053; 80076; 81001; 82140; 82728; 82947; 82962; 83615; 84145; 84484; 85025; 85379; 85610; 85730; 86140; 87040; 93005; 93970; 96365; 96375; G0378; A9540; J0456; J0696; J1644; J2405; J2920; J7030; U0003

== ENCOUNTER 2021-10-18 06:04 | Day surgery (SDC) | payer MEDICARE ==
[2021-10-18] MEDS ORDERED: ASPIRIN EC 325 MG TAB PO SCH (08:00)
[2021-10-18 08:10] LABS: Basophils # (Auto) 0.1 K/mm3 (0.0-0.1); Basophils % (Auto) 0.7 % (0.0-1.8); Eosinophils # (Auto) 0.1 K/mm3 (0.0-0.4); Eosinophils % (Auto) 1.9 % (0.0-4.3); Hematocrit 36.9 % (35.5-45.6); Lymphocytes # (Auto) 1.4 K/mm3 (1.2-5.4); Lymphocytes % (Auto) 19.7 % (13.4-35.0); Mean Corpuscular HGB Conc 33 % (32-34); Mean Corpuscular Volume 93 fl (84-94); Monocytes # (Auto) 0.8 K/mm3 (0.0-0.8); Platelet Count 178 K/mm3 (140-440); Red Blood Count 3.96 M/mm3 (3.65-5.03); Red Cell Distribution Width 14.2 % (13.2-15.2)
[2021-10-18 08:20] LABS: INR 0.98 (0.87-1.13)
[2021-10-18 08:21] LABS: Partial Thromboplastin Time 29.3 Sec. (24.2-36.6)
[2021-10-18 08:23] LABS: BUN/Creatinine Ratio 10; Blood Urea Nitrogen 12 mg/dL (9-20); Calcium 9.2 mg/dL (8.4-10.2); Hemolysis Index 5
[2021-10-18] MEDS: SODIUM CHLORIDE 0.9% 500 ML 500 ML IV SCH ×2 (08:26→10:15)
[2021-10-18] MEDS ORDERED: HEPARIN/NS 5000 UNIT/500ML 1,000 ML IR ONE (09:46)
[2021-10-18] MEDS ORDERED: LIDOCAINE (2%) 20 MG/1 ML VIAL 50 ML MDV INFILTRATI ONE (09:47)
[2021-10-18] MEDS: NITROGLYCERIN SYRINGE 3 ML ONE ×2 (10:15→10:43)
[2021-10-18] MEDS: fentaNYL 100 MCG/2 ML INJ ONE ×2 (10:15→10:40)
[2021-10-18] MEDS: HEPARIN 10,000 UNITS/10 ML VIAL ONE ×2 (10:16→10:43)
[2021-10-18] MEDS: VERAPAMIL 5 MG/2 ML INJ ONE ×2 (10:16→10:43)
[2021-10-18] MEDS: MIDAZOLAM 2 MG/2 ML INJ ONE ×2 (10:16→10:40)
--- NOTE | 2021-10-18 13:26 | Cardiac Catherization Report ---
DATE OF SERVICE: 10/18/2021 REASON FOR PROCEDURE: Chest pain, coronary artery disease, abnormal thallium stress test. PROCEDURES: 1. Left heart catheterization. 2. Selective left and right coronary angiography. 3. Left ventricular angiography. 4. Sedation time start 10:40, end 10:51. DESCRIPTION OF PROCEDURE: The patient was prepped and draped in a sterile fashion after informed consent. The right radial cath site was prepped and draped after negative Wisam's test. The right radial artery was entered using the Seldinger technique followed by placement of a 6-Italian hydrophilic sheath. Routine radial cocktail was administered via the sheath. Selective left and right coronary angiography was performed using a #3.5 left Kirk and a #4 right Kirk. The right Kirk was used for left ventricular angiography. The catheters were then removed, sheath removed and hemostasis achieved using a TR band. The patient was returned to the postprocedure unit in stable condition. There were no complications. FINDINGS: HEMODYNAMICS: Left ventricular end-diastolic pressure was 15. Ascending aortic pressure was 101/58. There was no significant pressure gradient on pullback across the aortic valve. CORONARY ANGIOGRAPHY: There was mild distal narrowing of the left main coronary artery. Left anterior descending artery contained diffuse mild atherosclerosis in its proximal to mid segments. There was also diffuse atherosclerosis of the distal segments of the LAD. The diagonal branches contained mild diffuse atherosclerosis. There were no severe focal lesions of the LAD and diagonal system. The circumflex artery contained a 30%-50% stenosis of its proximal to mid AV groove segment, otherwise mild irregularities in the obtuse marginal branches. The right coronary artery was dominant. This stent was visible in the mid right coronary artery. There was a 20% diffuse in-stent restenosis. Otherwise, this vessel remained patent. There was mild atherosclerosis of the distal AV groove right coronary artery. Left ventricular systolic function was well preserved with ejection fraction greater than 55%. CONCLUSION: 1. Patent right coronary artery stent, with mild diffuse in-stent restenosis. 2. Otherwise, diffuse mild atherosclerosis in the non-stented segments. No residual obstructive lesions noted. 3. Well preserved left ventricular systolic function, ejection fraction 55%. RECOMMENDATIONS: Aggressive risk factor modification and medical therapy. TID: [id number] RECEIPT: [id number] CA/ELIECER
[2021-10-18] MEDS ORDERED: traMADol 50 MG TAB PO PRN (13:32)
--- NOTE | 2021-10-18 13:35 | Discharge Summary ---
Short Stay Discharge Plan Activity: advance as tolerated Weight Bearing Status: Full Weight Bearing Diet: low fat, low cholesterol, low salt Wound: keep clean and dry Special Instructions: smoking cessation, no heavy lifting (3 days) Additional Instructions: keep your scheduled follow up appointment with Follow up with: FAB JON MD [Staff Physician] - 7 Days Forms: CardCath PCI D/C Instructions, Post Sedation D/C Instructions
[2021-10-18 14:12] VITALS: BP 133/75
[2021-10-18] MEDS ORDERED: SODIUM CHLORIDE 0.9% 1000 ML 1,000 ML IV SCH (14:45)
--- NOTE | 2021-10-20 19:58 | Electrocardiograph Report ---
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
== END 2021-10-18 06:05 | disposition home or self-care (01) ==
LOC: CATHLABREC 06:04
PROVIDERS: ATTEND Internal Medicine Cardiovascular Disease
DX: R07.89 Other chest pain (principal); I25.10 Atherosclerotic heart disease of native coronary artery without angina pectoris; R94.39 Abnormal result of other cardiovascular function study; I51.7 Cardiomegaly; G93.41 Metabolic encephalopathy; T82.855A Stenosis of coronary artery stent, initial encounter; Z79.82 Long term (current) use of aspirin; Z87.891 Personal history of nicotine dependence; Z87.01 Personal history of pneumonia (recurrent); Z95.0 Presence of cardiac pacemaker; Z85.46 Personal history of malignant neoplasm of prostate; Z98.890 Other specified postprocedural states; Z82.61 Family history of arthritis; Z82.49 Family history of ischemic heart disease and other diseases of the circulatory system; Y83.8 Other surgical procedures as the cause of abnormal reaction of the patient, or of later complication, without mention of misadventure at the time of the procedure; Y92.89 Other specified places as the place of occurrence of the external cause
CPT/HCPCS: 36415; 80048; 85025; 85610; 85730; 93005; 93458; 99156; C1894; J1644; J1815; J2250; J3010; J3490; J7040; Q9967